=== PATIENT | female | born 1975 | race Two or more races ===

== ENCOUNTER 2022-04-16 06:00 | Day surgery (SDC) | payer OTHER ==
[~2022-04-16] VITALS: Ht 152.4 cm; Wt 59.0 kg
[~2022-04-16 06:00] MED LIST: TAMOXIFEN CITRA20 MG PO
[2022-04-16] MEDS ORDERED: ULTRACET PO (08:45)
== END 2022-04-16 10:30 | disposition home or self-care (01) ==
LOC: CIR.AMB 06:00
PROVIDERS: ATTEND Surgery
DX: C50.912 Malignant neoplasm of unspecified site of left female breast (principal); K64.5 Perianal venous thrombosis; K64.1 Second degree hemorrhoids; I10 Essential (primary) hypertension; Z20.822 Contact with and (suspected) exposure to COVID-19

== ENCOUNTER 2022-10-22 07:09 | Day surgery (SDC) | payer OTHER ==
[~2022-10-22] VITALS: Ht 152.4 cm; Wt 65.8 kg
[~2022-10-22 07:09] MED LIST changes: +ULTRACET PO
== END 2022-10-22 22:20 | disposition home or self-care (01) ==
LOC: CIR.AMB 07:09
PROVIDERS: ATTEND Surgery
DX: D05.12 Intraductal carcinoma in situ of left breast (principal); C77.3 Secondary and unspecified malignant neoplasm of axilla and upper limb lymph nodes; N62 Hypertrophy of breast; R92.1 Mammographic calcification found on diagnostic imaging of breast; N64.81 Ptosis of breast; Z20.822 Contact with and (suspected) exposure to COVID-19; I10 Essential (primary) hypertension